=== PATIENT | female | born 1970 | race Caucasian/White ===

== ENCOUNTER → 2017-07-01 | Outpatient (CLI) | payer BC | END | disposition home or self-care (01) | LOC: PCVCIMAG 15:03 | DX: I10 Essential (primary) hypertension (principal); R53.83 Other fatigue; R06.00 Dyspnea, unspecified; R07.89 Other chest pain; Z72.0 Tobacco use | CPT/HCPCS: 76770; 93325; 93351; 93975 ==

== ENCOUNTER → 2018-04-06 | Outpatient (CLI) | payer BC, OTHER ==
--- NOTE | 2018-04-06 11:23 | PCVCIMAG ---
APPROVED REPORT Laterality: Bilateral Indications CVA/TIA: Doppler Spectral Velocity Analysis PSV / EDVPSV / EDV ECA (R) 90 / 13 cm/sECA (L) 95 / 10 cm/s dICA (R) 60 / 23 cm/sdICA (L) 55 / 18 cm/s Antonio (R) 77 / 21 cm/smICA (L) 74 / 31 cm/s pICA (R) 76 / 30 cm/spICA (L) 69 / 14 cm/s Bulb (R) 66 / 23 cm/sBulb (L) 72 / 19 cm/s dCCA (R) 89 / 25 cm/sdCCA (L) 87 / 19 cm/s mCCA (R) 82 / 25 cm/smCCA (L) 90 / 21 cm/s Vert (R) 32 / 8 cm/sVert (L) 47 / 16 cm/s ICA/CCA 0.87 ICA/CCA 0.85 Findings The right carotid bulb has no significant plaque. The right proximal internal carotid artery shows no significant stenosis. The right common carotid artery shows no significant stenosis. The right external carotid artery shows no significant stenosis. The left carotid bulb has minimal plaque. The left proximal internal carotid artery shows no significant stenosis. The left common carotid artery shows no significant stenosis. The left external carotid artery shows no significant stenosis. Conclusion 1. No significant stenosis involving either carotid artery 2. Antegrade vertebral flow
== END | disposition home or self-care (01) ==
LOC: PCVCIMAG 10:10
PROVIDERS: ATTEND Internal Medicine Cardiovascular Disease
DX: I10 Essential (primary) hypertension (principal); G45.9 Transient cerebral ischemic attack, unspecified
CPT/HCPCS: 93880

== ENCOUNTER 2019-07-04 19:20 | Emergency (ER) | payer BC, OTHER ==
[~2019-07-04] VITALS: Ht 152.4 cm; Wt 78.1 kg
--- NOTE | 2019-07-04 21:54 | PHYS DOC ---
Past Medical History Past Medical History: Hypertension Past Surgical History: Hysterectomy, Tubal ligation Additional Past Surgical Histo: BILAT KNEE SCOPES,BREAST BIOPSY Smoking Status: Former Smoker Alcohol Use: Occasionally Adult General Chief Complaint Chief Complaint: FEVER HPI HPI Patient is a 48 year old female who presents with diagnosed flu B2 weeks ago and was placed on Tamiflu. She states 7 days and she still had a low-grade fever and a cough and went back to her primary care provider. She states that her primary care provider told her that the cough has been lasting for a while after the flu and it was normal. Patient states ever since then she states just feeling worse and more fatigued especially when she is up and moving. She states just walking or carrying her purse or when she is at work moving around she has chest tightness and shortness of air. Patient states she had a fever of 100.7. Review of Systems Review of Systems Constitutional: fever or chills [] HENT: nasal congestion or sore throat [] Respiratory: cough or shortness of breath [] Cardiovascular: Tightness All other systems were reviewed and found to be within normal limits, except as documented in this note. Current Medications Current Medications Current Medications Medications (Trade) Dose Ordered Sig/Annamaria Start Time Stop Time Status Last Admin Dose Admin Albuterol Sulfate (Ventolin Neb Soln) 2.5 mg 1X ONCE 07/04/19 22:00 07/04/19 22:01 DC 07/04/19 22:01 2.5 MG Prednisone (Prednisone) 50 mg 1X ONCE 07/04/19 22:00 07/04/19 22:01 DC 07/04/19 22:00 50 MG Allergies Allergies Allergies Coded Allergies Type Severity Reaction Last Updated Verified No Known Drug Allergies 07/04/19 No Physical Exam Physical Exam Constitutional: Well developed, well nourished, no acute distress, non-toxic appearance. [] HENT: Normocephalic, atraumatic, bilateral external ears normal, oropharynx moist, no oral exudates, nose normal. [] Eyes: PERRLA, EOMI, conjunctiva normal, no discharge. [] Neck: Normal range of motion, no tenderness, supple, no stridor. [] Cardiovascular:Heart rate regular rhythm, no murmur [] Lungs & Thorax: F lobe breath sounds clear to auscultation, right lobe dimini shed [] Abdomen: Bowel sounds normal, soft, no tenderness, no masses, no pulsatile masses. [] Skin: Warm, dry, no erythema, no rash. [] Back: No tenderness, no CVA tenderness. [] Extremities: No tenderness, no cyanosis, no clubbing, ROM intact, no edema. [] Neurologic: Alert and oriented X 3, normal motor function, normal sensory function, no focal deficits noted. [] Psychologic: Affect normal, judgement normal, mood normal. [] Current Patient Data Vital Signs Vital Signs Date Time Temp Pulse Resp B/P (MAP) Pulse Ox O2 Delivery O2 Flow Rate FiO2 07/04/19 22:01 97 Room Air 07/04/19 20:48 98.6 87 18 158/81 (106) 98.6 EKG EKG [] Radiology/Procedures Radiology/Procedures [] Course & Med Decision Making Course & Med Decision Making Pertinent Labs and Imaging studies reviewed. (See chart for details) Patient states she's never been diagnosed with asthma but thinks that she does have exercise-induced asthma. Alert and oriented. Ambulatory with a steady gait. Speaks in full clear sentences. Lungs are clear to auscultation in all lobes except she is more diminished in the right lung lobes. No wheezes are heard. Abdomen is soft and nontender. Throat is reddened but there is no swelling or exudates. Bilateral tympanic White but there is fluid behind them. Skin pink warm and dry. Patient states she's been eating and drinking appropriately. Patient denies chest pain, dizziness, syncope, nausea, vomiting, diarrhea, neck pain, back pain, headache, visual changes, numbness or tingling, focal weakness. Chest x-ray read by Dr. Petersen no obvious acute findings. [] Dragon Disclaimer Dragon Disclaimer This electronic medical record was generated, in whole or in part, using a voice recognition dictation system. Departure Departure Impression: Primary Impression: Shortness of breath Additional Impressions: Cough Fever Disposition: HOME, SELF-CARE Condition: STABLE Referrals: NO GLASS DO (PCP) Patient Instructions: Cough, Adult Additional Instructions: Follow up with primary care provider. Drink plenty of fluids and rest as much as possible. Scripts Benzonatate (TESSALON PERLE) 100 Mg Capsule 1 CAP PO TID, #30 CAP Prov: BAFUSELDON APRN 07/04/19 Albuterol Sulfate (PROAIR HFA INHALER) 8.5 Gm Hfa.aer.ad 1 PUFF INH PRN Q4HRS PRN for SHORTNESS OF BREATH, #1 INHALER 0 Refills Prov: ELDON NAGEL APRN 07/04/19 Azithromycin (AZITHROMYCIN TABLET) 250 Mg Tablet 1 PKG PO UD for 5 Days, #6 TAB 0 Refills 2 the first day followed by 1 for days 2-5 Prov: ELDON NAGEL APRN 07/04/19 Methylprednisolone (MEDROL) 4 Mg Tab.ds.pk 1 PKG PO UD, #1 PKG Prov: ELDON NAGEL APRN 07/04/19 Problem Qualifiers Additional Impressions: Fever Fever type: unspecified Qualified Codes: R50.9 - Fever, unspecified ELDON NAGEL APRN Jul 04, 2019 21:54
[2019-07-04] MEDS ORDERED: ALBUTEROL SULFATE 2.5 MG/3 ML NEBU. NEB ONE (22:00)
[2019-07-04] MEDS ORDERED: predniSONE 10 MG TABLET PO ONE (22:00)
[2019-07-04] MEDS ORDERED: BENZ100C PO (22:22)
[2019-07-04] MEDS ORDERED: AZIT250T6 PO (22:22)
[2019-07-04] MEDS ORDERED: ALBU2.5V8 INH (22:22)
[2019-07-04] MEDS ORDERED: METH4TAB2 PO (22:22)
--- NOTE | 2019-07-04 22:51 | RAD ---
Exam: Chest 2 views INDICATION: Cough TECHNIQUE: Frontal and lateral views the chest Comparisons: None FINDINGS: The cardiomediastinal silhouette and pulmonary vessels are within normal limits. The lung and pleural spaces are clear. IMPRESSION: No acute cardiopulmonary process. Electronically signed by: Sasha Zuleta MD (07/04/2019 10:48 PM) [id number]
[2019-07-04 22:53] VITALS: BP 157/80
== END 2019-07-04 22:53 | disposition home or self-care (01) ==
LOC: ER 19:20
DX: R05 Cough (principal); R50.9 Fever, unspecified; I10 Essential (primary) hypertension; R06.02 Shortness of breath; Z87.891 Personal history of nicotine dependence
CPT/HCPCS: 71046; 94640; 99283; J7512; J7613

== ENCOUNTER → 2020-02-04 | Outpatient (CLI) | payer OTHER, BC ==
[~2020-02-04] MED LIST: ALBU2.5V8 INH; AZIT250T6 PO; BENZ100C PO; METH4TAB2 PO
== END ==
LOC: LAB 12:05
PROVIDERS: ATTEND Internal Medicine Pulmonary Disease
DX: R19.7 Diarrhea, unspecified (principal); Z20.828 Contact with and (suspected) exposure to other viral communicable diseases
CPT/HCPCS: U0003-CS